=== PATIENT | male | born 1945 | race Caucasian/White ===

== ENCOUNTER 2020-07-03 18:49 | Emergency (ER) | payer OTHER ==
[~2020-07-03] VITALS: Ht 152.4 cm; Wt 70.3 kg
--- NOTE | 2020-07-03 18:49 | NUR ---
[id number], verbalized "i want to go to the hospital to get check out" pt is aaox3 ,not in respiratory distress, hooked to cardiac cath tech, kept rested and comfortable. will continue to monitor.
--- NOTE | 2020-07-03 18:55 | NUR ---
SEEN AND EXAMINED BY .
[2020-07-03] MEDS ORDERED: IV NS 0.9% 500 ML BAG IV ONE (19:00)
--- NOTE | 2020-07-03 19:00 | NUR ---
URINE SPECIMEN COLLECTED AND SENT TO LAB.
--- NOTE | 2020-07-03 19:05 | NUR ---
IV LINE ESTABLISHED BLOOD DRAWN AND SENT TO LAB.
[2020-07-03 19:11] LABS: BASOPHILS # (AUTO) 0.1 /CMM (0.0-0.2); BASOPHILS % (AUTO) 1.1 % (0.0-2.0); EOSINOPHILS % (AUTO) 1.9 % (0.0-6.0); HEMATOCRIT 50 % (39-51); HEMOGLOBIN 16.7 g/dL (13.5-17.5); LYMPHOCYTES # (AUTO) 2.6 /CMM (0.8-4.8); LYMPHOCYTES % (AUTO) 31.8 % (20.0-44.0); MEAN CORPUSCULAR HGB CONC 34 g/dl (31.0-36.0); MEAN CORPUSCULAR VOLUME 90 fL (80-96); MONOCYTES # (AUTO) 0.9 /CMM (0.1-1.30); MONOCYTES % (AUTO) 10.8 % (2.0-12.0); NEUTROPHILS # (AUTO) 4.5 /CMM (1.8-8.9); NEUTROPHILS % (AUTO) 54.4 % (43.0-81.0); PLATELET COUNT (AUTO) 254 /CMM (150-450); RED BLOOD CELL COUNT(AUTO) 5.54 MIL/uL (4.5-6.0); WHITE BLOOD COUNT (AUTO) 8.3 K/uL (4.3-11.0)
[2020-07-03 19:18] LABS: APPEARANCE,URINE Clear (CLEAR); BILIRUBIN,URINE Negative (NEGATIVE); BLOOD, URINE Trace-intact Ery/uL (NEGATIVE); COLOR,URINE Yellow (YELLOW); LEUKOCYTE ESTERASE ,URINE Negative (NEGATIVE); NITRITE, URINE Negative (NEGATIVE); PH,URINE 5.5 (5.0-8.0); PROTEIN,URINE Negative (NEGATIVE); UGLUCOSE Negative (NEGATIVE); UROBILINOGEN,URINE 0.2 EU/dL (0.2)
--- NOTE | 2020-07-03 19:19 | NUR ---
REPORT GIVEN TO DARBY FAIRBANKS [facility]
[2020-07-03 19:23] LABS: CALCIUM, SERUM 9.5 mg/dL (8.5-10.1); CARBON DIOXIDE 25 mmol/L (21-32); CHLORIDE 100 mmol/L (98-107); CREATININE 1.2 mg/dL (0.6-1.3); GLUCOSE 120 mg/dL (74-106); POTASSIUM 3.4 mmol/L (3.5-5.1); SODIUM SERUM 135 mmol/L (136-145); UREA NITROGEN, BLOOD 13 mg/dL (7-18)
[2020-07-03 19:28] LABS: BACTERIA,URINE Rare /HPF (None Seen); SQUAMOUS EPITHELIAL CELL,UR Few /HPF (None Seen); WBC,URINE NONE SEEN /HPF (0-3)
[2020-07-03 19:29] LABS: ALANINE AMINOTRANSFERASE 16 U/L (12-78); ALBUMIN 3.9 g/dL (3.4-5.0); ALKALINE PHOSPHATASE 93 U/L (46-116); ASPARTATE AMINOTRANSFERASE 16 U/L (15-37); BILIRUBIN,DIRECT 0.3 mg/dL (0.0-0.2); BILIRUBIN,TOTAL 1.8 mg/dL (0.2-1.0); LIPASE 181 U/L (73-393); TOTAL PROTEIN, SERUM 7.6 g/dL (6.4-8.2)
--- NOTE | 2020-07-03 20:02 | NUR ---
CALLED [facility] [phone] HARRIS LATEST 72 99%
[2020-07-03] MEDS ORDERED: LORAZEPAM 0.5 MG TABLET PO ONE (20:30)
--- NOTE | 2020-07-03 20:47 | NUR ---
CALL FROM LAB. RAPID COVID NEGATIVE
--- NOTE | 2020-07-03 22:03 | NUR ---
FAX [facility]
--- NOTE | 2020-07-04 00:10 | NUR ---
[facility] TEAM AT BED SIDE
--- NOTE | 2020-07-04 01:35 | NUR ---
Pt placed on 5150 hold GD by Param Garcia [facility]
--- NOTE | 2020-07-04 03:10 | NUR ---
F/U WITH [facility] TEAM DISPATCH, WORKING ON A BED F/U WITH: [id number] BED FINDER
--- NOTE | 2020-07-04 03:46 | NUR ---
SPOKE TO STEFFI LE JHON; WILL BE WORKING ON A BED, ANTICIPATE A CALL FROM [facility]
--- NOTE | 2020-07-04 04:18 | NUR ---
REC'D A CALL FROM ERROL @ [place] W/ FOLLOWING TRANSFER INFO: PT GOT ACCEPTED AT [facility] , [address] TYLER V. # FOR REPORT: [phone]. REPORT TO BE GIVEN AFTER 7 AM ETA WILL BE AT 0830
[2020-07-04 07:00] VITALS: BP 145/98
--- NOTE | 2020-07-04 07:19 | NUR ---
REPORT GIVEN TO REY FAIRBANKS [facility]
--- NOTE | 2020-07-04 08:17 | NUR ---
REPORT GIVEN TO AUDREY FAIRBANKS FROM [place] FOR [facility]
--- NOTE | 2020-07-04 08:26 | NUR ---
IV removed. Catheter intact and site benign. Pressure and 4x4 applied to site. No bleeding noted.
== END 2020-07-04 08:46 | disposition short-term general hospital (02) ==
LOC: ER 18:52
DX: F41.9 Anxiety disorder, unspecified (principal); R45.851 Suicidal ideations; F32.9 Major depressive disorder, single episode, unspecified; F19.10 Other psychoactive substance abuse, uncomplicated; Z20.828 Contact with and (suspected) exposure to other viral communicable diseases; I10 Essential (primary) hypertension; Z86.73 Personal history of transient ischemic attack (TIA), and cerebral infarction without residual deficits; I45.2 Bifascicular block
CPT/HCPCS: 36415; 70450; 80048; 80076; 80320; 81001; 83690; 84484; 85025; 87426; 93005; 99285; C9803; J7040; 81000-TC; G0480

== ENCOUNTER 2020-11-05 18:26 | Emergency (ER) | payer OTHER ==
[~2020-11-05] VITALS: Ht 170.2 cm; Wt 74.4 kg
--- NOTE | 2020-11-05 18:26 | NUR ---
PT BIBRA 860 C/O ANXIETY ATTACK "I NEED MENTAL HELP" PT IS AAOX3, NOT COOPERATIVE, NOT IN RESPIRATORY DISTRESS, V/S STABLE, KEPT RESTED AND COMFORTABLE. WILL CONTINUE TO MONITOR.
--- NOTE | 2020-11-05 18:35 | NUR ---
[facility] [employer]PL[employer] FIXER AT BEDSIDE FOR EVAL.
[2020-11-05] MEDS ORDERED: LORAZEPAM 1 MG TABLET ONE (18:43)
--- NOTE | 2020-11-05 18:45 | NUR ---
ER PHLEB AT BEDSIDE FOR BLOOD DRAW.
[2020-11-05 18:55] LABS: BASOPHILS # (AUTO) 0.1 /CMM (0.0-0.2); HEMOGLOBIN 16.2 g/dL (13.5-17.5); MONOCYTES # (AUTO) 0.7 /CMM (0.1-1.30)
[2020-11-05] MEDS ORDERED: LORAZEPAM 1 MG TABLET PO ONE (19:00)
[2020-11-05 19:02] LABS: BASOPHILS % (AUTO) 1.1 % (0.0-2.0); EOSINOPHILS % (AUTO) 1.5 % (0.0-6.0); HEMATOCRIT 48 % (39-51); LYMPHOCYTES # (AUTO) 1.4 /CMM (0.8-4.8); LYMPHOCYTES % (AUTO) 23.5 % (20.0-44.0); MEAN CORPUSCULAR HGB CONC 34 g/dl (31.0-36.0); MEAN CORPUSCULAR VOLUME 91 fL (80-96); MONOCYTES % (AUTO) 12.2 % (2.0-12.0); NEUTROPHILS # (AUTO) 3.7 /CMM (1.8-8.9); NEUTROPHILS % (AUTO) 61.7 % (43.0-81.0); PLATELET COUNT (AUTO) 233 /CMM (150-450); RED BLOOD CELL COUNT(AUTO) 5.31 MIL/uL (4.5-6.0)
--- NOTE | 2020-11-05 19:27 | NUR ---
REPORT GIVEN TO TIKI ANN FOR [facility]
--- NOTE | 2020-11-05 19:55 | NUR ---
Danis medrano in EDM - 11/05/20 at 1957 by TIFFANY PT AMBULATORY TO RESTROOM WITH STEADY GAIT. UNABLE TO PROVIDE URINE SAMPLE AT THIS TIME. MD EPSTEIN
[2020-11-05 19:56] LABS: ALANINE AMINOTRANSFERASE 16 U/L (12-78); ALBUMIN 3.6 g/dL (3.4-5.0); ALCOHOL, BLOOD < 3 mg/dL (0-0); ALKALINE PHOSPHATASE 86 U/L (46-116); ASPARTATE AMINOTRANSFERASE 13 U/L (15-37); BILIRUBIN,DIRECT 0.3 mg/dL (0.0-0.2); BILIRUBIN,TOTAL 1.7 mg/dL (0.2-1.0); CALCIUM, SERUM 9.2 mg/dL (8.5-10.1); CARBON DIOXIDE 23 mmol/L (21-32); CHLORIDE 103 mmol/L (98-107); GLUCOSE 116 mg/dL (74-106); POTASSIUM 3.5 mmol/L (3.5-5.1); SODIUM SERUM 140 mmol/L (136-145); TOTAL PROTEIN, SERUM 7.2 g/dL (6.4-8.2); UREA NITROGEN, BLOOD 12 mg/dL (7-18)
--- NOTE | 2020-11-05 19:57 | NUR ---
PT AMBULATORY TO RESTROOM WITH STEADY GAIT. URINE COLLECTED AND SENT TO LAB
[2020-11-05 20:02] LABS: ACETAMINOPHEN < 2 ug/ml (10-30)
[2020-11-05 20:30] LABS: BILIRUBIN,URINE MODERATE (NEGATIVE); COLOR,URINE YELLOW (YELLOW); LEUKOCYTE ESTERASE ,URINE NEGATIVE (NEGATIVE); NITRITE, URINE NEGATIVE (NEGATIVE); PROTEIN,URINE NEGATIVE (NEGATIVE); UGLUCOSE NEGATIVE (NEGATIVE)
[2020-11-05 20:39] LABS: BACTERIA,URINE RARE /HPF (None Seen); MUCUS,URINE Moderate /LPF (None Seen); WBC,URINE 0-2 /HPF (0-3)
--- NOTE | 2020-11-05 21:08 | NUR ---
CALLED MIMI CORTEZ
--- NOTE | 2020-11-05 21:08 | NUR ---
Covid Swab collected and sent to lab.
--- NOTE | 2020-11-05 22:41 | NUR ---
[facility]
--- NOTE | 2020-11-05 23:12 | NUR ---
SPOKE WITH [facility], PENDING PET EVAL. WILL CALL BACK WITH AMISH
--- NOTE | 2020-11-06 00:21 | NUR ---
[facility] - [phone]
--- NOTE | 2020-11-06 01:01 | NUR ---
Jose PET tattooer - Roxanne on video conference with pt for eval.
--- NOTE | 2020-11-06 01:27 | NUR ---
PER PATRICIA FROM [facility], PT WILL BE PLACED ON A [address] HURT MADE AWARE
--- NOTE | 2020-11-06 02:40 | NUR ---
CLINICAL INFORMATION FAXED TO [facility] PER REQUEST ([phone])
--- NOTE | 2020-11-06 06:56 | NUR ---
Call from [facility]. Pt accepted to [facility], by Dr Guerin. # for report [phone]. BLS eta 1 hr.
--- NOTE | 2020-11-06 07:07 | NUR ---
REPORT GIVEN TO TIKI MYERS FROM [place] [facility]
--- NOTE | 2020-11-06 07:25 | NUR ---
REPORT GIVEN TO AM SHIFT RN FOR EMILY
--- NOTE | 2020-11-06 08:07 | NUR ---
REPORT GIVEN TO EMT FOR PT TRANSFER TO [facility].
[2020-11-06 08:13] VITALS: BP 135/82
== END 2020-11-06 08:17 ==
LOC: ER 18:27
DX: F41.1 Generalized anxiety disorder (principal); E80.6 Other disorders of bilirubin metabolism; Z91.14 Patient's other noncompliance with medication regimen; I45.2 Bifascicular block; Z20.822 Contact with and (suspected) exposure to COVID-19
CPT/HCPCS: 36415; 80048; 80076; 80299; 80307; 80320; 81001; 85025; 87426; 93005; 99285; C9803; G0480